=== PATIENT | female | born 1945 | race Caucasian/White ===

== ENCOUNTER 2018-02-04 03:48 | Observation (INO) | payer SELFPAY ==
[2018-02-04] VITALS (10 sets, daily range): BP systolic 126–188; BP diastolic 60–82; PULSE 63–76; RESP 16–23; TEMP 97.6–98.9; O2SAT 93–97
--- NOTE | 2018-02-04 04:24 | PD ---
HPI Chief Complaint: Dizziness Time Seen by Provider: 04:11 Travel History International Travel<30 days: No Contact w/Intl Traveler<30days: No Traveled to known affect area: No History of Present Illness HPI The patient is a 72 year old female who presents to the [facility] emergency department with a history of reported sensation of spinning that she first noticed around 2:45 AM when she got up to go to the bathroom. She reports that she noticed it while she was lying in bed prior to standing. She denies feeling lightheaded. She reports that she sees the room spinning. She reports having difficulty walking because of ataxia. The patient reports that she had nausea and vomiting 1 prior to arrival. On further questioning, the patient reports that she has had intermittent problems with ringing in her ears and a pressure sensation in her ears. She also reports having intermittent popping in her ears with muffled quality to her hearing. She denies having any headache. She reports that she does have problems with seasonal allergies which have been worse recently with some nasal congestion. She reports having a clear nasal discharge. She denies having any known recent fevers. On review of systems otherwise, the patient denies having any neck pain, chest pain, shortness of breath, abdominal pain, diarrhea, urinary symptoms, or other neurologic symptoms. [facility] Past Medical History Narrative Medical The patient's past medical history is significant for hypertension, arthritis, seasonal allergies. ?: Not Past Surgical History Surgical History: No Previous Surgery Social History Alcohol Use: No Tobacco Use: No Substance Use: No Allergies-Medications (Allergen,Severity, Reaction): Coded Allergies: No Known Allergies (Unverified , 02/04/18) Reported Meds & Prescriptions Reported Meds & Active Scripts Active Reported Losartan (Losartan Potassium) 25 Mg Tab 25 Mg PO BID Narrative Medication Meloxicam as needed, losartan, and allergy pill Review of Systems General / Constitutional: No: Fever Eyes: No: Diploplia, Visual changes HENT: Positive: Vertigo, Rhinorrhea, Congestion, Other (Ringing in her ears, muffled quality to sound), No: Headaches, Lightheadedness, Neck Stiffness, Neck Pain Cardiovascular: No: Chest Pain or Discomfort Respiratory: No: Shortness of Breath Gastrointestinal: Positive: Nausea, Vomiting, No: Abdominal Pain Genitourinary: No: Dysuria Musculoskeletal: No: Pain Skin: No Rash Neurologic: Positive: Weakness (Reported sensation of weakness in her leg), Dizziness, Coordination Problem, No: Focal Abnormalities, Headache, Change in Mentation, Slurred Speech, Sensory Disturbance Psychiatric: No: Depression Endocrine: No: Polydipsia Hematologic/Lymphatic: No: Easy Bruising Physical Exam Narrative General: The patient is a well-developed well-nourished female in no acute distress. Head and Neck exam: Head is normocephalic atraumatic. Eyes: EOMI, pupils are equal round and reactive to light. Subtle nystagmus with lateral gaze bilaterally. No double vision reported. No loss of visual key. Nose: Midline septum with pink mucous membranes Ears: Tympanic membranes are pearly bilaterally with good cone of light, no erythema or exudate. No cerumen impaction. Mouth: Dentition unremarkable. Moist mucus membranes. Posterior oropharynx is not erythematous. No tonsillar hypertrophy. Uvula midline. Airway patent. Neck: No palpable lymphadenopathy. No nuchal rigidity. No thyromegaly. Cardiovascular: Regular rate and rhythm without murmurs, gallops, or rubs. No pulse deficit to the extremities. Lungs: Clear to auscultation bilaterally. No wheezes, rhonchi, or rales. Abdomen: Soft, without tenderness to palpation in all 4 quadrants of the abdomen. No guarding, rebound, or rigidity. Normal bowel sounds are audible. No tenderness on palpation of McBurney's point. Extremities: No clubbing, cyanosis, or edema. 2+ pulses in all 4 extremities. Back: No spinous process tenderness to palpation. No costovertebral angle tenderness to palpation. Neurologic Exam: Cranial nerves 2-12 were intact on exam. Strength is 5/5 in all 4 extremities. No sensory deficits noted. The patient on examination has difficulty with finger to nose on the right side, difficulty with heel to pisano on the right side. The patient has a good finger to nose on the left side, good heel to pisano on the left side. The patient's gait was assessed. The patient with assistance was able to stand, however her gait is unsteady when attempting to walk. She is ataxic. Skin Exam: No rash noted. Intact skin that is warm and dry. Data Data Last Documented VS Vital Signs Date Time Temp Pulse Resp B/P (MAP) Pulse Ox O2 Delivery O2 Flow Rate FiO2 5/2/18 04:31 95 Room Air 02/04/18 04:31 75 16 02/04/18 03:51 98.1 Orders Orders Electrocardiogram (02/04/18 04:12) Complete Blood Count With Diff (02/04/18 04:12) Comprehensive Metabolic Panel (02/04/18 04:12) Creatine Kinase (Cpk) (02/04/18 04:12) Ckmb (Isoenzyme) Profile (02/04/18 04:12) Troponin I (02/04/18 04:12) Prothrombin Time / Inr (Pt) (02/04/18 04:12) Act Partial Throm Time (Ptt) (02/04/18 04:12) Lipase (02/04/18 04:12) Magnesium (Mg) (02/04/18 04:12) Ct Brain W/O Iv Contrast(Rout) (02/04/18 04:12) Iv Access Insert/Monitor (02/04/18 04:12) Ecg Monitoring (02/04/18 04:12) Oximetry (02/04/18 04:12) Sodium Chlor 0.9% 1000 Ml Inj (Ns 1000 M (02/04/18 04:30) Ondansetron Inj (Zofran Inj) (02/04/18 04:30) CKMB (02/04/18 04:38) CKMB% (02/04/18 04:38) Meclizine (Antivert) (02/04/18 05:15) Aspirin (Aspirin) (02/04/18 05:45) Losartan (Cozaar) (02/04/18 09:00) Admit Order (Ed Use Only) (02/04/18 05:55) Place In Observation (02/04/18 ) Vital Signs (Adult) Q4H (02/04/18 05:52) Activity Oob With Assistance (02/04/18 05:52) Diet Heart Healthy (02/04/18 Breakfast) Sodium Chloride 0.9% Flush (Ns Flush) (02/04/18 06:00) Sodium Chloride 0.9% Flush (Ns Flush) (02/04/18 09:00) Acetaminophen (Tylenol) (02/04/18 06:00) Ondansetron Inj (Zofran Inj) (02/04/18 06:00) Basic Metabolic Panel (Bmp) (02/05/18 06:00) Complete Blood Count With Diff (02/05/18 06:00) Pt Request For Service (02/04/18 05:52) Heparin Inj (Heparin Inj) (02/04/18 06:00) Naloxone Inj (Narcan Inj) (02/04/18 06:00) Docusate Sodium-Senna ([place]-Colace) (02/04/18 09:00) Magnesium Hydroxide Liq (Milk Of Magnesi (02/04/18 06:00) Sennosides (Senokot) (02/04/18 06:00) Bisacodyl Supp (Dulcolax Supp) (02/04/18 06:00) Lactulose Liq (Lactulose Liq) (02/04/18 06:00) Nih Stroke Scale - Nihss .Daily (02/04/18 05:52) Neuro Checks Q2HX12,Q4H (02/04/18 05:52) Case Management Consult (02/04/18 ) Nursing Bedside Swallow Assess .ONCE (02/04/18 05:52) Scd Bilateral/Knee High BRISA.QSHIFT (02/04/18 05:52) Hemoglobin (Hgb) A1c (02/04/18 05:52) Lipid Profile (02/05/18 06:00) Us Carotid Arteries Comp Bilat (02/04/18 ) Mra Brain W/O Contrast (Cow) (02/04/18 ) Mri Brain W/O Contrast (02/04/18 ) Echo 2d Comp With Doppler (02/04/18 ) Consult Neurology (02/04/18 ) Sodium Chlor 0.9% 1000 Ml Inj (Ns 1000 M (02/04/18 05:52) Bedside Glucose BRISA.CSUGAR (02/04/18 05:52) Insulin Aspart Supplemtl Scale (Novolog (02/04/18 08:00) Shuttleless Loom Weaver / Telemetry BRISA.Q8H (02/04/18 05:52) Consult Stroke Navigator (02/04/18 ) Labs Laboratory Tests Test 02/04/18 04:38 White Blood Count 7.5 TH/MM3 Red Blood Count 4.51 MIL/MM3 Hemoglobin 13.4 GM/DL Hematocrit 38.8 % Mean Corpuscular Volume 85.9 FL Mean Corpuscular Hemoglobin 29.7 PG Mean Corpuscular Hemoglobin Concent 34.5 % Red Cell Distribution Width 12.9 % Platelet Count 281 TH/MM3 Mean Platelet Volume 7.5 FL Neutrophils (%) (Auto) 66.3 % Lymphocytes (%) (Auto) 23.9 % Monocytes (%) (Auto) 5.8 % Eosinophils (%) (Auto) 3.5 % Basophils (%) (Auto) 0.5 % Neutrophils # (Auto) 5.0 TH/MM3 Lymphocytes # (Auto) 1.8 TH/MM3 Monocytes # (Auto) 0.4 TH/MM3 Eosinophils # (Auto) 0.3 TH/MM3 Basophils # (Auto) 0.0 TH/MM3 CBC Comment DIFF FINAL Differential Comment Prothrombin Time 10.7 SEC Prothromb Time International Ratio 1.1 RATIO Activated Partial Thromboplast Time 24.0 SEC Blood Urea Nitrogen 22 MG/DL Creatinine 0.67 MG/DL Random Glucose 102 MG/DL Total Protein 7.3 GM/DL Albumin 3.5 GM/DL Calcium Level 9.3 MG/DL Magnesium Level 1.8 MG/DL Alkaline Phosphatase 105 U/L Aspartate Amino Transf (AST/SGOT) 17 U/L Alanine Aminotransferase (ALT/SGPT) 41 U/L Total Bilirubin 0.6 MG/DL Sodium Level 139 MEQ/L Potassium Level 3.8 MEQ/L Chloride Level 105 MEQ/L Carbon Dioxide Level 28.1 MEQ/L Anion Gap 6 MEQ/L Estimat Glomerular Filtration Rate 87 ML/MIN Total Creatine Kinase 122 U/L Creatine Kinase MB 1.8 NG/ML Troponin I LESS THAN 0.02 NG/ML Lipase 187 U/L [facility] Medical Decision Making Medical Screen Exam Complete: Yes Emergency Medical Condition: Yes Medical Record Reviewed: Yes Differential Diagnosis TIA, versus CVA, versus cerebellar mass, versus benign positional vertigo, versus Mnire's disease, versus labyrinthitis Narrative Course During the course of the patient's emergency department visit, the patient's history, examination, and differential diagnosis were reviewed with the patient. The patient was placed on a desk monitor with oximetry and frequent blood pressure monitoring. The patient had IV access obtained and blood work sent for analysis. The patient had an EKG done on arrival that shows a sinus rhythm heart rate of 76, QRS duration 101 ms, QTC [address] segment elevation is noted, T waves are inverted in V1. The patient was initially provided normal saline at 70 mL/h. The patient was given Zofran 4 mg IV for nausea, Antivert 25 mg p.o. 1. The patient's laboratory studies were reviewed and remarkable for 02/04/18 04:38 Total Protein 7.3, Albumin 3.5, Calcium Level 9.3, Magnesium Level 1.8, Alkaline Phosphatase 105, Aspartate Amino Transf (AST/SGOT) 17, Alanine Aminotransferase (ALT/SGPT) 41, Total Bilirubin 0.6. Cardiac enzymes are within normal limits, lipase 187. PT 10.7, PTT 24 Radiology studies were reviewed and remarkable for Last Impressions Head CT 02/04/18 0412 Signed Impressions: Service Date/Time: Sunday, February 04, 2018 04:51 - CONCLUSION: 1. Chronic changes in the deep white matter tracts and external capsules. 2. Nothing acute. Rodney Hall MD Due to a concern that the patient's symptoms are related to a TIA, the patient was given aspirin 325 mg p.o. 1. The patient will be admitted for continued evaluation and treatment. The patient's results were discussed with the patient, including the plan of care. I explained that further testing and/ or monitoring is indicated based on the patient's history, examination, and/ or laboratory findings. Therefore, I recommended admission for additional evaluation. The patient expressed understanding and was agreeable with this plan. The patient was admitted to the hospital in stable condition and sent to a bed under the care of the [facility] service. Physician Communication Physician Communication The patient's case including history, pertinent physical examination findings, and laboratory studies were discussed with Dr. Pritchard. It was agreed that the patient would be admitted to the [facility] service. Diagnosis Primary Impression: Vertigo Admitting Information Admitting Physician Requests: Observation Martha Yanez MD February 04, 2018 04:24
[2018-02-04] MEDS ORDERED: LOSA25TA PO (04:30)
[2018-02-04] MEDS ORDERED: ONDANSETRON HCL 4 MG/2 ML VIAL IV PUSH ONE (04:30)
[2018-02-04] MEDS: SODIUM CHLOR 0.9% 1000 ML INJ 1,000 ML IV SCH ×3 (04:36→15:44)
[2018-02-04 04:49] LABS: BASOPHIL % 0.5 % (0.0-2.0); EOSINOPHIL # 0.3 TH/MM3 (0-0.4); EOSINOPHIL % 3.5 % (0.0-4.0); HEMATOCRIT 38.8 % (35.0-46.0); HEMOGLOBIN 13.4 GM/DL (11.6-15.3); LYMPH % 23.9 % (9.0-44.0); LYMPHOCYTE # 1.8 TH/MM3 (1.0-4.8); MEAN CELL VOLUME 85.9 FL (80.0-100.0); MEAN CORPUSCULAR HEMOGLOBIN 29.7 PG (27.0-34.0); MEAN CORPUSCULAR HGB CONC 34.5 % (32.0-36.0); MEAN PLATELET VOLUME 7.5 FL (7.0-11.0); MONO % 5.8 % (0.0-8.0); MONOCYTE # 0.4 TH/MM3 (0-0.9); NEUT % 66.3 % (16.0-70.0); PLATELET COUNT 281 TH/MM3 (150-450); RED BLOOD COUNT 4.51 MIL/MM3 (4.00-5.30); RED CELL DISTRIBUTION WIDTH 12.9 % (11.6-17.2); WHITE BLOOD COUNT 7.5 TH/MM3 (4.0-11.0)
[2018-02-04 05:00] LABS: INTERNATIONAL NORMALIZED RATIO 1.1 RATIO; PROTHROMBIN TIME - PATIENT 10.7 SEC (9.8-11.6)
[2018-02-04 05:06] LABS: ALBUMIN 3.5 GM/DL (3.4-5.0); AST (GOT) 17 U/L (15-37); BICARBONATE 28.1 MEQ/L (21.0-32.0); BLOOD UREA NITROGEN 22 MG/DL (7-18); CALCIUM 9.3 MG/DL (8.5-10.1); CHLORIDE 105 MEQ/L (98-107); CREATININE 0.67 MG/DL (0.50-1.00); GLOMERULAR FILTRATION RATE 87 ML/MIN (>89); GLUCOSE,RANDOM 102 MG/DL (74-106); MAGNESIUM 1.8 MG/DL (1.5-2.5); SODIUM (NA) 139 MEQ/L (136-145)
[2018-02-04 05:07] LABS: ALT (GPT) 41 U/L (10-53)
[2018-02-04 05:11] LABS: ALKALINE PHOSPHATASE 105 U/L (45-117); TOTAL BILIRUBIN ADULT 0.6 MG/DL (0.2-1.0); TOTAL PROTEIN 7.3 GM/DL (6.4-8.2); TROPONIN I LESS THAN 0.02 NG/ML (0.02-0.05)
[2018-02-04] MEDS ORDERED: MECLIZINE HCL 25 MG TAB PO ONE (05:15)
--- NOTE | 2018-02-04 05:39 | RADRPT ---
EXAM DATE/TIME: 02/04/2018 04:51 [facility] COMPARISON: No previous studies available for comparison. INDICATIONS : Dizziness. RADIATION DOSE: 56.35 CTDIvol (mGy) MEDICAL HISTORY : Hypertension. SURGICAL HISTORY : None. ENCOUNTER: Initial ACUITY: 1 day PAIN SCALE: 0/10 LOCATION: cranial TECHNIQUE: Multiple contiguous axial images were obtained of the head. Using automated exposure control and adj ustment of the mA and/or kV according to patient size, radiation dose was kept as low as reasonably a chievable to obtain optimal diagnostic quality images. DICOM format image data is available electro nically for review and comparison. FINDINGS: CEREBRUM: The ventricles are normal for age. No evidence of midline shift, mass lesion, hemorrhage or acute in farction. 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 No extra-ax ial fluid collections are seen. POSTERIOR FOSSA: The cerebellum and brainstem are intact. The 4th ventricle is midline. The cerebellopontine angle i s unremarkable. EXTRACRANIAL: The visualized portion of the orbits is intact. SKULL: The calvaria is intact. No evidence of skull fracture. CONCLUSION: 1. Chronic changes in the deep white matter tracts and external capsules. 2. Nothing acute. Rodney Hall MD on February 04, 2018 at 5:36 Board Certified Radiologist. This report was verified electronically.
[2018-02-04] MEDS ORDERED: ASPIRIN 325 MG TAB PO ONE (05:45)
[2018-02-04] MEDS ORDERED: NALOXONE HCL 0.4 MG/ML AMP IV PUSH PRN (06:00)
[2018-02-04] MEDS ORDERED: SODIUM CHLORIDE 0.9% FLUSH 10 ML FLUSH IV FLUSH PRN (06:00)
[2018-02-04] MEDS ORDERED: SENNOSIDES 8.6 MG TAB PO PRN (06:00)
[2018-02-04] MEDS ORDERED: ACETAMINOPHEN 325 MG TAB PO PRN (06:00)
[2018-02-04] MEDS ORDERED: LACTULOSE SYRUP 20 GM/30 ML CUP PO PRN (06:00)
[2018-02-04] MEDS ORDERED: MAGNESIUM HYDROXIDE SUSP 30 ML CUP PO PRN (06:00)
[2018-02-04] MEDS ORDERED: ONDANSETRON HCL 4 MG/2 ML VIAL IVP PRN (06:00)
[2018-02-04] MEDS ORDERED: BISACODYL 10 MG SUPP RECTAL PRN (06:00)
[2018-02-04] MEDS: HEPARIN SODIUM - SQ 10,000 UNITS/ML VIAL SQ SCH ×2 (06:30→18:18)
--- NOTE | 2018-02-04 08:11 | HHI.HP ---
HPI Service [facility] Primary Care Physician Unknown Admission Diagnosis Vertigo, r/o TIA Diagnoses: Chief Complaint: dizziness Travel History International Travel<30 Days: No Contact w/Intl Traveler <30 Da: No Traveled to Known Affected Are: No History of Present Illness 72-year-old female with history of hypertension, diet-controlled hyperlipidemia , presents with acute onset of dizziness. The patient is Amharic speaking only, translation service offered, however her son is at bedside who assisted in translation per the request of the patient. The patient reports around 2 AM this morning she is lying in bed when she felt dizzy, attempted to ambulate to the bathroom, and became acutely severely dizzy, described as the room spinning. Denies any lightheadedness or near syncope. She reports difficulty with ambulation and feels imbalanced. She has not had nausea and one episode of vomiting which prompted her to come to the ER. Patient denies any recent fevers/chills or cough, but has had recent flare of her seasonal allergies with some rhinitis. She reports one prior episode of dizziness that resolved on its own. She went to her doctor's office after that episode and was told it was likely an episode of vertigo. She denies any prior history of stroke. She denies any headache, visual changes, unilateral numbness/weakness, chest pain, palpitations, shortness of breath, or abdominal pains. She has no other medical complaints at this time. She is prescribed losartan 25 mg bid for her blood pressure, but usually only takes this once a day. She does check her blood pressures regularly at grocery stores, usually systolic in the 140s. Review of Systems Except as stated in HPI: all other systems reviewed are Neg Past Family Social History Past Medical History Hypertension Diet-controlled hyperlipidemia Arthritis Seasonal allergies Past Surgical History Denies any prior surgeries Reported Medications Losartan (Losartan Potassium) 25 Mg Tab 25 Mg PO BID Allergies: Coded Allergies: No Known Allergies (Unverified , 02/04/18) Active Ordered Medications Current Medications Medications (Trade) Dose Ordered Sig/Nirav Route Start Time Stop Time Status Last Admin Sodium Chloride 1,000 ml @ 70 mls/hr [id number] IV 02/04/18 04:30 02/04/18 04:36 (Cozaar) 25 mg BID PO 02/04/18 09:00 02/04/18 09:09 (NS Flush) 2 ml UNSCH PRN IV FLUSH 02/04/18 06:00 (NS Flush) 2 ml BID IV FLUSH 02/04/18 09:00 02/04/18 09:09 (Tylenol) 650 mg Q4H PRN PO 02/04/18 06:00 (Zofran Inj) 4 mg Q6H PRN IVP 02/04/18 06:00 (Heparin Inj) 5,000 units Q12H SQ 02/04/18 06:00 02/04/18 06:30 (Narcan Inj) 0.4 mg UNSCH PRN IV PUSH 02/04/18 06:00 ([place]ia-Colace) 1 tab BID PO 02/04/18 09:00 02/04/18 09:09 (Milk Of Magnesia Liq) 30 ml Q12H PRN PO 02/04/18 06:00 (Senokot) 17.2 mg Q12H PRN PO 02/04/18 06:00 (Dulcolax Supp) 10 mg DAILY PRN RECTAL 02/04/18 06:00 (Lactulose Liq) 30 ml DAILY PRN PO 02/04/18 06:00 Sodium Chloride 1,000 ml @ 70 mls/hr [id number] IV 02/04/18 05:52 02/04/18 06:33 (NovoLOG SUPPLEMENTAL SCALE) 1 ACHS SQ 02/04/18 08:00 Family History Father with heart disease Mother with no significant medical history that she is aware of Social History Denies any tobacco, alcohol, or illicit drug use. Physical Exam Vital Signs Vital Signs Date Time Temp Pulse Resp B/P (MAP) Pulse Ox O2 Delivery O2 Flow Rate FiO2 02/04/18 07:42 98.9 64 18 142/69 (93) 95 02/04/18 06:39 02/04/18 06:18 63 16 160/70 (100) 93 Room Air 02/04/18 04:31 95 Room Air 02/04/18 04:31 75 16 183/80 (114) 95 Room Air 02/04/18 03:51 98.1 76 23 188/82 (117) 97 Physical Exam GENERAL: Well-nourished, well-developed pleasant female patient in NAD. SKIN: Warm and dry. No rash. HEAD: Normocephalic. Atraumatic. EYES: Pupils equal and round. No scleral icterus. No injection or drainage. EOMI. No noticeable nystagmus. ENT: No nasal bleeding or discharge. Mucous membranes pink and moist. NECK: Supple. Trachea midline. CARDIOVASCULAR: Regular rate and rhythm. No murmur appreciated. RESPIRATORY: No accessory muscle use. Clear to auscultation. Breath sounds equal bilaterally. GASTROINTESTINAL: Abdomen soft, non-tender, nondistended. Normoactive bowel sounds x4. MUSCULOSKELETAL: No obvious deformities. Extremities without clubbing, cyanosis , or edema. NEUROLOGICAL: Awake and alert. No obvious cranial nerve deficits. Motor grossly within normal limits. 5/5 muscle strength in bilateral upper and lower extremities. Normal speech. PSYCHIATRIC: Appropriate mood and affect; insight and judgment normal. Laboratory Laboratory Tests Test 02/04/18 04:38 White Blood Count 7.5 Red Blood Count 4.51 Hemoglobin 13.4 Hematocrit 38.8 Mean Corpuscular Volume 85.9 Mean Corpuscular Hemoglobin 29.7 Mean Corpuscular Hemoglobin Concent 34.5 Red Cell Distribution Width 12.9 Platelet Count 281 Mean Platelet Volume 7.5 Neutrophils (%) (Auto) 66.3 Lymphocytes (%) (Auto) 23.9 Monocytes (%) (Auto) 5.8 Eosinophils (%) (Auto) 3.5 Basophils (%) (Auto) 0.5 Neutrophils # (Auto) 5.0 Lymphocytes # (Auto) 1.8 Monocytes # (Auto) 0.4 Eosinophils # (Auto) 0.3 Basophils # (Auto) 0.0 CBC Comment DIFF FINAL Differential Comment Prothrombin Time 10.7 Prothromb Time International Ratio 1.1 Activated Partial Thromboplast Time 24.0 Blood Urea Nitrogen 22 Creatinine 0.67 Random Glucose 102 Total Protein 7.3 Albumin 3.5 Calcium Level 9.3 Magnesium Level 1.8 Alkaline Phosphatase 105 Aspartate Amino Transf (AST/SGOT) 17 Alanine Aminotransferase (ALT/SGPT) 41 Total Bilirubin 0.6 Sodium Level 139 Potassium Level 3.8 Chloride Level 105 Carbon Dioxide Level 28.1 Anion Gap 6 Estimat Glomerular Filtration Rate 87 Total Creatine Kinase 122 Creatine Kinase MB 1.8 Troponin I LESS THAN 0.02 Lipase 187 Result Diagram: 02/04/188 02/04/18437 Imaging Last Impressions Head CT 02/04/18411 Signed Impressions: Service Date/Time: Sunday, February 04, 2018 04:51 - CONCLUSION: 1. Chronic changes in the deep white matter tracts and external capsules. 2. Nothing acute. MD Jonna Brooks VTE Risk Assessment Capyefri VTE Risk Assessment: Mod/High Risk (score >= 2) Caprini Risk Assessment Model Point Value = 1 Point Value = 2 Point Value = 3 Point Value = 5 Age 41-60 Minor surgery BMI > 25 kg/m2 Swollen legs Varicose veins or History of unexplained or recurrent spontaneous Oral contraceptives or hormone replacement Sepsis (< 1 month) Serious lung disease, including pneumonia (< 1 month) Abnormal pulmonary function Acute myocardial infarction Congestive heart failure (< 1 month) History of inflammatory bowel disease Medical patient at bed rest Age 61-74 Arthroscopic surgery Major open surgery (> 45 min) Laparoscopic surgery (> 45 min) Malignancy Confined to bed (> 72 hours) Immobilizing plaster cast Central venous access Age >= 75 History of VTE Family history of VTE Factor V Leiden Prothrombin [id number] Lupus anticoagulant Anticardiolipin antibodies Elevated serum homocysteine Heparin-induced thrombocytopenia Other congenital or acquired thrombophilia Stroke (< 1 month) Elective arthroplasty Hip, pelvis, or leg fracture Acute spinal cord injury (< 1 month) Prophylaxis Regimen Total Risk Factor Score Risk Level Prophylaxis Regimen 0-1 Low Early ambulation 2 Moderate Order ONE of the following: *Sequential Compression Device (SCD) *Heparin 5000 units SQ BID 3-4 Higher Order ONE of the following medications: *Heparin 5000 units SQ TID *Enoxaparin/Lovenox 40 mg SQ daily (WT < 150 kg, CrCl > 30 mL/min) *Enoxaparin/Lovenox 30 mg SQ daily (WT < 150 kg, CrCl > 10-29 mL/min) *Enoxaparin/Lovenox 30 mg SQ BID (WT < 150 kg, CrCl > 30 mL/min) AND/OR *Sequential Compression Device (SCD) 5 or more Highest Order ONE of the following medications: *Heparin 5000 units SQ TID (Preferred with Epidurals) *Enoxaparin/Lovenox 40 mg SQ daily (WT < 150 kg, CrCl > 30 mL/min) *Enoxaparin/Lovenox 30 mg SQ daily (WT < 150 kg, CrCl > 10-29 mL/min) *Enoxaparin/Lovenox 30 mg SQ BID (WT < 150 kg, CrCl > 30 mL/min) AND *Sequential Compression Device (SCD) Assessment and Plan Problem List: (1) Vertigo ICD Code: R42 - Dizziness and giddiness Status: Acute Assessment and Plan 72-year-old female with history of hypertension, diet-controlled hyperlipidemia , presents with acute onset of dizziness. The patient is Amharic speaking only, son is at bedside who assisted in translation per the request of the patient. Benign paroxysmal positional vertigo: Rule out TIA/CVA, however symptoms suggestive of vertigo, positive nystagmus upon arrival. S/p meclizine and zofran 1 with improvement of symptoms. -Head CT reviewed, no acute findings -Check brain MRI/MRA to rule out CVA. -Check carotid ultrasound -Continue meclizine 25 mg q6h prn dizziness -Consult PT -Monitor for improvement Accelerated hypertension: BP 188/82 upon arrival. Patient was prescribed losartan 25 mg bid at home, however usually only takes this once a day. -Continue patient's losartan 25 mg bid -Monitor BP, adjust antihypertensives as needed DVT prophylaxis: heparin sq Discussed Condition With Patient, Patient's Son, Jennifer Stewart PA-C February 04, 2018 8:11 am
[2018-02-04] MEDS: INSULIN ASPART SUPPLEMENTAL SCALE SQ SCH ×4 (08:26→21:00)
--- NOTE | 2018-02-04 08:49 | EKG ---
Date Performed: 02/04/2018 Time Performed: 04:24:09 PTAGE: 72 years EKG: Sinus rhythm BORDERLINE LEFT AXIS DEVIATION BORDERLINE ECG NO PREVIOUS TRACING DOCTOR: Mark Yanez Interpretating Date/Time 02/04/2018 08:46:15
[2018-02-04] MEDS: DOCUSATE SODIUM 50 MG/SENNA 8.6 MG TAB PO SCH ×2 (09:09→21:01)
[2018-02-04] MEDS: LOSARTAN 25 MG TAB PO SCH ×2 (09:09→21:01)
[2018-02-04] MEDS: SODIUM CHLORIDE 0.9% FLUSH 10 ML FLUSH IV FLUSH SCH ×2 (09:09→21:00)
--- NOTE | 2018-02-04 11:36 | RADRPT ---
EXAM DATE/TIME: 02/04/2018 10:53 [facility] COMPARISON: No previous studies available for comparison. INDICATIONS : Dizziness. MEDICAL HISTORY : Hypercholesterolemia. Hypertension. SURGICAL HISTORY : None. ENCOUNTER: Initial ACUITY: 1 day PAIN SCORE: 0/10 LOCATION: Bilateral neck PEAK SYSTOLIC VELOCITIES (cm/sec): ICA/CCA RATIO: Right: 1.3 Left: 1.3 ICA: Right: 108 Left: 121 CCA: Right: 80 Left: 91 ECA: Right: 282 Left: 107 VERTEBRAL: Right: 41 antegrade Left: 41 antegrade Elevated flow velocities and ICA/CCA ratios have been found to correlate with increased degrees of vessel stenosis, calculated as percentage of diameter relative to a normal segment of distal ICA/CCA FINDINGS: RIGHT CAROTID: There is mild atherosclerotic plaquing at the bifurcation.. The waveforms are within normal limits. LEFT CAROTID: There is mild atherosclerotic plaquing at the bifurcation.. The waveforms are within normal limits. VERTEBRAL ARTERIES: Antegrade flow is seen in both vertebral arteries. MISCELLANEOUS: None. CONCLUSION: 1. Mild atherosclerotic plaquing at the carotid bifurcations. 2. No hemodynamically significant carotid artery stenosis identified. 3. Incidental note made of bilateral thyroid nodules. There are only partially visualized. The larges t is on the left measuring 3.7 x 3.5 cm. Mateus Luciano MD on February 04, 2018 at 11:33 Board Certified Radiologist. This report was verified electronically.
--- NOTE | 2018-02-04 13:12 | RADRPT ---
EXAM DATE/TIME: 02/04/2018 12:13 [facility] COMPARISON: CT BRAIN W/O CONTRAST, February 04, 2018, 4:51. INDICATIONS : Dizziness. MEDICAL HISTORY : Hypertension. SURGICAL HISTORY : None. ENCOUNTER: Subsequent ACUITY: 2 day PAIN SCORE: 0/10 LOCATION: cranial TECHNIQUE: Multiplanar, multisequence MRI of the brain was performed without contrast. FINDINGS: CEREBRUM: The ventricles are normal for age. There is bilateral cortical atrophy. No evidence of midline shift , mass lesion, hemorrhage or acute infarction. No extraaxial fluid collections are seen. The pituit nataliia gland and suprasellar cistern are normal in configuration. WHITE MATTER: There is moderate chronic white matter changes throughout the white matter tracts bilaterally. POSTERIOR FOSSA: The cerebellum and brainstem are intact. The 4th ventricle is midline. The cerebellopontine angle is unremarkable. The cerebellar tonsils are normal in position. DIFFUSION IMAGING: No focal areas of restricted diffusion are seen. No evidence of acute infarction. EXTRACRANIAL: The visualized portions of the orbits and paranasal sinuses are unremarkable. CONCLUSION: 1. Bilateral cortical atrophy and diffuse chronic white matter changes. 2. Otherwise, unremarkable exam for patient's age. Arie Avendano MD on February 04, 2018 at 13:09 Board Certified Radiologist. This report was verified electronically.
--- NOTE | 2018-02-04 13:13 | RADRPT ---
EXAM DATE/TIME: 02/04/2018 12:13 [facility] COMPARISON: No previous studies available for comparison. INDICATIONS : Dizziness. MEDICAL HISTORY : Hypertension. SURGICAL HISTORY : None. ENCOUNTER: Subsequent ACUITY: 2 day PAIN SCORE: 0/10 LOCATION: cranial Please note a normal MRA of the brain does not entirely exclude the possibility of a small aneurysm, nor the possibility of distal intracranial vessel disease. TECHNIQUE: 3D time of flight MRA was performed. Source images, multiplanar STS MIP, and 3D volume MIP reconstru ctions were reviewed. FINDINGS: There is excellent visualization of the major intracranial arteries out to the second-order branch ve ssels. There is no evidence for aneurysm, vessel truncation or stenosis, and no evidence for vascula r malformation. CONCLUSION: No acute disease. Arie Avendano MD on February 04, 2018 at 13:11 Board Certified Radiologist. This report was verified electronically.
[2018-02-04 15:46] LABS: HEMOGLOBIN A1C 5.6 % (4.3-6.0)
[2018-02-04] MEDS ORDERED: MECL-62 PO (15:55)
--- NOTE | 2018-02-04 15:55 | HHI.DCPOC ---
Discharge Care Plan Diagnosis: (1) Vertigo (2) Hypertension Goals to Promote Your Health * To prevent worsening of your condition and complications * To maintain your health at the optimal level Directions to Meet Your Goals Take your medications as prescribed Follow your dietary instruction Follow activity as directed Keep your appointments as scheduled Take your immunizations and boosters as scheduled If your symptoms worsen call your PCP, if no PCP go to Urgent Care Center or Emergency Room Smoking is Dangerous to Your Health. Avoid second hand smoke Call the 24-hour hour crisis hotline for domestic abuse at Jennifer Rogers PA-C February 04, 2018 3:55 pm
[2018-02-04 16:40] LABS: FREE T4 0.99 NG/DL (0.76-1.46)
--- NOTE | 2018-02-04 17:43 | MB ---
cc: Tatyana Reese MD, Dalia MD DATE: 02/04/2018 REASON FOR CONSULTATION: Vertigo. HISTORY OF PRESENT ILLNESS: This is a 72-year-old woman with a history of hyperlipidemia, hypertension. She comes in with sudden onset of vertigo with some nausea and vomiting. Per her son, who translates, it was worse to the right. She has had this in the past. She is feeling better. She actually was able to ambulate now with a physical therapist. Fortunately, her scans have come back unremarkable. PAST MEDICAL HISTORY: As stated. ALLERGIES: None. CURRENT MEDICINES: Losartan. SOCIAL HISTORY: No tobacco, alcohol or drugs. PHYSICAL EXAMINATION: VITAL SIGNS: Temperature is 98.7, pulse 67, respiratory rate 18, blood pressure 126/60. NECK: Supple. There are no bruits. HEART: Regular. NEUROLOGIC EXAM: She is awake, alert. Her speech is normal in Congolese. Pupils reactive. Visual key full. No nystagmus. Tongue midline. Hearing normal. Motor blount - no drift or leg lag. Obncoy-gvzo-[id number] - There is no past pointing. DTRs are 1+. Toes are downgoing. Sensory normal. Her gait is withheld at this time, IMAGING STUDIES: MRI brain shows bilateral atrophy and white matter changes but no acute findings otherwise. [place] of [place] did not show any intracranial disease. Carotid ultrasound - there is mild plaquing. There are also some thyroid nodules. IMPRESSION: Most likely consistent with benign paroxysmal positional vertigo. PLAN: Recommend some outpatient vestibular rehabilitation for Mariza maneuver exercises. She can have some Meclizine p.r.n. Continue her home medicines for her blood pressure, adequate blood pressure control. She has some thyroid nodules. She will need a followup with endocrinology for that. From my perspective if cleared by physical therapy, she can go home with outpatient physical therapy and Meclizine p.r.n. MD HELENA Knowles/ , 05:30 PM , 05:41 PM
[2018-02-05] VITALS (7 sets, daily range): BP systolic 128–166; BP diastolic 60–76; PULSE 65–75; RESP 16; TEMP 97.8–98.2; O2SAT 93–98
[2018-02-05] MEDS: HEPARIN SODIUM - SQ 10,000 UNITS/ML VIAL SQ SCH (06:34)
[2018-02-05] MEDS: SODIUM CHLOR 0.9% 1000 ML INJ 1,000 ML IV SCH ×3 (06:35→10:28)
[2018-02-05 07:27] LABS: BASOPHIL % 0.5 % (0.0-2.0); EOSINOPHIL # 0.3 TH/MM3 (0-0.4); HEMATOCRIT 38.5 % (35.0-46.0); HEMOGLOBIN 13.1 GM/DL (11.6-15.3); LYMPH % 28.5 % (9.0-44.0); LYMPHOCYTE # 1.9 TH/MM3 (1.0-4.8); MEAN CELL VOLUME 86.5 FL (80.0-100.0); MEAN CORPUSCULAR HEMOGLOBIN 29.3 PG (27.0-34.0); MEAN CORPUSCULAR HGB CONC 33.9 % (32.0-36.0); MEAN PLATELET VOLUME 7.9 FL (7.0-11.0); MONOCYTE # 0.5 TH/MM3 (0-0.9); PLATELET COUNT 287 TH/MM3 (150-450); RED BLOOD COUNT 4.45 MIL/MM3 (4.00-5.30); RED CELL DISTRIBUTION WIDTH 12.9 % (11.6-17.2); WHITE BLOOD COUNT 6.7 TH/MM3 (4.0-11.0)
[2018-02-05 08:01] LABS: CREATININE 0.62 MG/DL (0.50-1.00)
[2018-02-05 08:02] LABS: CHOLESTEROL/ HDL RATIO 4.89 RATIO; HDL CHOLESTEROL 41.7 MG/DL (40.0-60.0)
[2018-02-05] MEDS: INSULIN ASPART SUPPLEMENTAL SCALE SQ SCH ×3 (08:17→17:01)
[2018-02-05] MEDS: DOCUSATE SODIUM 50 MG/SENNA 8.6 MG TAB PO SCH (08:41)
[2018-02-05] MEDS: SODIUM CHLORIDE 0.9% FLUSH 10 ML FLUSH IV FLUSH SCH (08:41)
[2018-02-05] MEDS: LOSARTAN 25 MG TAB PO SCH (08:41)
--- NOTE | 2018-02-05 09:56 | HHI.PR ---
Subjective Remarks Follow-up for vertigo, thyroid nodules. The patient reports feeling much better today. She denies any recurrent dizziness. She has been able to ambulate to the restroom without difficulty. Denies any headache, lightheadedness, chest pain, palpitations, shortness of breath, or abdominal complaints. Discussed her elevated LDL, the son reports she has tried many cholesterol medications in the past but could not tolerate this because of muscle aches. She does take fish oil at home. The patient's son would like to avoid any cholesterol medications at this time and plans to follow-up with primary care physician. Objective Vitals Vital Signs Date Time Temp Pulse Resp B/P (MAP) Pulse Ox O2 Delivery O2 Flow Rate FiO2 02/05/18 08:19 98.0 75 16 166/72 (103) 96 02/05/18 07:49 65 02/05/18 04:37 98.0 71 16 137/64 (88) 93 02/05/18 00:27 98.2 75 16 128/60 (82) 95 02/04/18 21:19 98.3 76 16 131/67 (88) 95 02/04/18 16:49 98.7 67 18 126/60 (82) 97 02/04/18 15:40 72 02/04/18 14:03 97.6 65 18 131/61 (84) 93 02/04/18 11:41 67 I/O 02/04/18 02/04/18 02/04/18 02/05/18 02/05/18 02/05/18 06:59 14:59 22:59 06:59 14:59 22:59 Intake Total 1000 ml Balance 1000 ml Intake IV Total 1000 ml # Voids 2 1 Result Diagram: 02/05/18 0600 02/05/18 0600 Imaging Last Impressions Head CT 02/04/18 0412 Signed Impressions: Service Date/Time: Sunday, February 04, 2018 04:51 - CONCLUSION: 1. Chronic changes in the deep white matter tracts and external capsules. 2. Nothing acute. Rodney Hall MD Head Magnetic Resonance Angiography 02/04/18 0000 Signed Impressions: Service Date/Time: Sunday, February 04, 2018 12:13 - CONCLUSION: No acute disease. Arie Avendano MD Carotid Artery Ultrasound 02/04/18 0000 Signed Impressions: Service Date/Time: Sunday, February 04, 2018 10:53 - CONCLUSION: 1. Mild atherosclerotic plaquing at the carotid bifurcations. 2. No hemodynamically significant carotid artery stenosis identified. 3. Incidental note made of bilateral thyroid nodules. There are only partially visualized. The largest is on the left measuring 3.7 x 3.5 cm. Mateus Luciano MD Brain MRI 02/04/18 0000 Signed Impressions: Service Date/Time: Sunday, February 04, 2018 12:13 - CONCLUSION: 1. Bilateral cortical atrophy and diffuse chronic white matter changes. 2. Otherwise, unremarkable exam for patient's age. Arie Avendano MD Objective Remarks GENERAL: Well-nourished, well-developed pleasant female patient in NAD. SKIN: Warm and dry. No rash. HEENT: Normocephalic. Atraumatic.Pupils equal and round. EOMI. No noticeable nystagmus. Mucous membranes pink and moist. CARDIOVASCULAR: Regular rate and rhythm. No murmur appreciated. RESPIRATORY: No accessory muscle use. Clear to auscultation. Breath sounds equal bilaterally. GASTROINTESTINAL: Abdomen soft, non-tender, nondistended. Normoactive bowel sounds x4. MUSCULOSKELETAL: No obvious deformities. Extremities without clubbing, cyanosis , or edema. NEUROLOGICAL: Awake and alert. No obvious cranial nerve deficits. Motor grossly within normal limits. Normal speech. PSYCHIATRIC: Appropriate mood and affect; insight and judgment normal. Medications and IVs Current Medications Medications (Trade) Dose Ordered Sig/Nirav Route Start Time Stop Time Status Last Admin (Cozaar) 25 mg BID PO 02/04/18 09:00 02/05/18 08:41 (NS Flush) 2 ml UNSCH PRN IV FLUSH 02/04/18 06:00 (NS Flush) 2 ml BID IV FLUSH 02/04/18 09:00 02/05/18 08:41 (Tylenol) 650 mg Q4H PRN PO 02/04/18 06:00 (Zofran Inj) 4 mg Q6H PRN IVP 02/04/18 06:00 (Heparin Inj) 5,000 units Q12H SQ 02/04/18 06:00 02/05/18 06:34 (Narcan Inj) 0.4 mg UNSCH PRN IV PUSH 02/04/18 06:00 ([place]-Colace) 1 tab BID PO 02/04/18 09:00 02/04/18 21:01 (Milk Of Magnesia Liq) 30 ml Q12H PRN PO 02/04/18 06:00 (Senokot) 17.2 mg Q12H PRN PO 02/04/18 06:00 (Dulcolax Supp) 10 mg DAILY PRN RECTAL 02/04/18 06:00 (Lactulose Liq) 30 ml DAILY PRN PO 02/04/18 06:00 (NovoLOG SUPPLEMENTAL SCALE) 1 ACHS SQ 02/04/18 08:00 A/P Problem List: (1) Vertigo ICD Code: R42 - Dizziness and giddiness Status: Acute Assessment and Plan 72-year-old female with history of hypertension, diet-controlled hyperlipidemia , presents with acute onset of dizziness. The patient is Prydein[place] speaking only, son is at bedside who assisted in translation per the request of the patient. Benign paroxysmal positional vertigo: Rule out TIA/CVA, however symptoms suggestive of vertigo, positive nystagmus upon arrival. S/p meclizine and zofran 1 with improvement of symptoms. -Head CT reviewed, no acute findings -Check brain MRI/MRA to rule out CVA. -Carotid ultrasound with no stenosis, but did have incidental finding of large thyroid nodules -Continue meclizine 25 mg q6h prn dizziness -Neurology consulted, agrees likely vertigo, recommends vestibular therapy and meclizine prn -Consult PT, ok with outpatient vestibular therapy -Symptoms resolved Accelerated hypertension: BP 188/82 upon arrival. Patient was prescribed losartan 25 mg bid at home, however usually only takes this once a day. -Continue patient's losartan 25 mg bid -Monitor BP, adjust antihypertensives as needed -BP improved Thyroid Nodules: incidental finding on carotid U/S -largest thyroid nodule on carotid U/S measuring 3.7 x 3.5cm -TSH and T4 wnl -Consult endocrinology for further evaluation Hyperlipidemia: LDL 137. -discussed with patient and son, reportedly patient has tried numerous cholesterol medications including statin, however cannot tolerate due to myopathies -patient and son requested to continue treatment with fish oil only for now and will f/up as outpatient DVT prophylaxis: heparin sq Discharge Planning Plan to discharge after seen and cleared by endocrinology. 1600hrs: Patient seen by endocrinology, discussed with Dr. Isaac, recommend collecting thyroid antibody labs, then ok to discharge from endocrinology standpoint. Labs are send out and will not be resulted tonight. Dr. Isaac plans to follow up on results and recommended outpatient follow up. All questions answered with the patient and son. Discharge patient to home Condition on discharge: Improved Heart Healthy Diet as tolerated Ad Reshma activity Rx written: meclizine 25mg po q8h prn dizziness Follow-up with primary care physician and physical therapy for vestibular rehab Jennifer Rogers PA-C February 05, 2018 9:56 am
--- NOTE | 2018-02-05 16:27 | PD.CONS ---
History of Present Illness Service Endocrinology Consult Requested By Dr Rogers Reason for Consult Large thyroid nodule Primary Care Physician Unknown Diagnoses: History of Present Illness This is a 72 years old [place] Lady who came to the ED for evaluation of dizziness and who was found to have a large thyroid nodule on her imaging work up as a incidental finding. Her directed work up revealed a TSR and Free T4 which is normal. Otherwise she has no history of thyroid disease, had some 5 lbs weight gain in the last 6 months which her son who is the spanish interpreter/translator feels has more to do with her decrease in physial activity since they moved. Otherwise she also admits to dysphagia to liquids off and on but not to solids. On questioning she admits to a history of GERD. She otherwise other than the presenting symptoms and the aforementioned does not have a symptoms of thyroid dysfunction. Review of Systems Except as stated in HPI: all other systems reviewed are Neg Past Family Social History Allergies: Coded Allergies: No Known Allergies (Unverified , 02/04/18) Past Medical History HTN, GERD, Hyperlipidemia, DJD, GERD and Gall Bladder Stones Past Surgical History Non contributory Active Ordered Medications Current Medications Medications (Trade) Dose Ordered Sig/Nirav Route Start Time Stop Time Status Last Admin (Cozaar) 25 mg BID PO 02/04/18 09:00 02/05/18 08:41 (NS Flush) 2 ml UNSCH PRN IV FLUSH 02/04/18 06:00 (NS Flush) 2 ml BID IV FLUSH 02/04/18 09:00 02/05/18 08:41 (Tylenol) 650 mg Q4H PRN PO 02/04/18 06:00 (Zofran Inj) 4 mg Q6H PRN IVP 02/04/18 06:00 (Heparin Inj) 5,000 units Q12H SQ 02/04/18 06:00 02/05/18 06:34 (Narcan Inj) 0.4 mg UNSCH PRN IV PUSH 02/04/18 06:00 ([place]-Colace) 1 tab BID PO 02/04/18 09:00 02/04/18 21:01 (Milk Of Magnesia Liq) 30 ml Q12H PRN PO 02/04/18 06:00 (Senokot) 17.2 mg Q12H PRN PO 02/04/18 06:00 (Dulcolax Supp) 10 mg DAILY PRN RECTAL 02/04/18 06:00 (Lactulose Liq) 30 ml DAILY PRN PO 02/04/18 06:00 (NovoLOG SUPPLEMENTAL SCALE) 1 ACHS SQ 02/04/18 08:00 Family History CAD in her father and in her sister DM and HTN Social History Single, living with her son, No history of smoking, drinking or illicit drugs. She used to work in a kitchen. Physical Exam Vital Signs Vital Signs Date Time Temp Pulse Resp B/P (MAP) Pulse Ox O2 Delivery O2 Flow Rate FiO2 02/05/18 15:11 97.8 72 16 149/76 (100) 96 02/05/18 12:23 98.0 75 16 139/61 (87) 98 02/05/18 12:09 69 02/05/18 08:19 98.0 75 16 166/72 (103) 96 02/05/18 07:49 65 02/05/18 04:37 98.0 71 16 137/64 (88) 93 02/05/18 00:27 98.2 75 16 128/60 (82) 95 02/04/18 21:19 98.3 76 16 131/67 (88) 95 02/04/18 16:49 98.7 67 18 126/60 (82) 97 Physical Exam GENERAL: This is a well-nourished, well-developed patient, in no apparent distress with central obesity. SKIN: No rashes, ecchymoses or lesions. Cool and dry. HEAD: Atraumatic. Normocephalic. EYES: Pupils equal round and reactive. Extraocular motions intact. No scleral icterus. No injection or drainage. ENT: Nose without bleeding, purulent drainage NECK: Trachea midline. No JVD or lymphadenopathy. Supple, nontender, no meningeal signs. Normal Carotid pulses without bruits. Thyroid reveals a 3.5 cm smooth ovoid nodule in the lower left lobe on physical examination. Right side is more difficult to evaluate. CARDIOVASCULAR: Regular rate and rhythm without murmurs, gallops, or rubs. RESPIRATORY: Clear to auscultation. Breath sounds equal bilaterally. No wheezes , rales, or rhonchi. MUSCULOSKELETAL: Extremities without clubbing, cyanosis, or edema. No joint tenderness, effusion, or edema noted. No calf tenderness.Has [place]ber[place] Nodes on several of her fingers. NEUROLOGICAL: Awake and alert. Cranial nerves II through XII intact. Motor and sensory grossly within normal limits. Laboratory Laboratory Tests Test 02/05/18 06:00 White Blood Count 6.7 Red Blood Count 4.45 Hemoglobin 13.1 Hematocrit 38.5 Mean Corpuscular Volume 86.5 Mean Corpuscular Hemoglobin 29.3 Mean Corpuscular Hemoglobin Concent 33.9 Red Cell Distribution Width 12.9 Platelet Count 287 Mean Platelet Volume 7.9 Neutrophils (%) (Auto) 60.0 Lymphocytes (%) (Auto) 28.5 Monocytes (%) (Auto) 7.0 Eosinophils (%) (Auto) 4.0 Basophils (%) (Auto) 0.5 Neutrophils # (Auto) 4.0 Lymphocytes # (Auto) 1.9 Monocytes # (Auto) 0.5 Eosinophils # (Auto) 0.3 Basophils # (Auto) 0.0 CBC Comment DIFF FINAL Differential Comment Blood Urea Nitrogen 17 Creatinine 0.62 Random Glucose 82 Calcium Level 9.0 Sodium Level 142 Potassium Level 4.1 Chloride Level 108 Carbon Dioxide Level 27.0 Anion Gap 7 Estimat Glomerular Filtration Rate 95 Triglycerides Level 125 Cholesterol Level 204 LDL Cholesterol 137 HDL Cholesterol 41.7 Cholesterol/HDL Ratio 4.89 Result Diagram: 02/05/18 0600 02/05/18 0600 Imaging Last [address] 02/04/18 0412 Signed Impressions: Service Date/Time: Sunday, February 04, 2018 04:51 - CONCLUSION: 1. Chronic changes in the deep white matter tracts and external capsules. 2. Nothing acute. Rodney Hall MD Head Magnetic Resonance Angiography 02/04/18 0000 Signed Impressions: Service Date/Time: Sunday, February 04, 2018 12:13 - CONCLUSION: No acute disease. Arie Avendano MD Carotid Artery Ultrasound 02/04/18 0000 Signed Impressions: Service Date/Time: Sunday, February 04, 2018 10:53 - CONCLUSION: 1. Mild atherosclerotic plaquing at the carotid bifurcations. 2. No hemodynamically significant carotid artery stenosis identified. 3. Incidental note made of bilateral thyroid nodules. There are only partially visualized. The largest is on the left measuring 3.7 x 3.5 cm. Mateus Luciano MD Brain MRI 02/04/18 0000 Signed Impressions: Service Date/Time: Sunday, February 04, 2018 12:13 - CONCLUSION: 1. Bilateral cortical atrophy and diffuse chronic white matter changes. 2. Otherwise, unremarkable exam for patient's age. Arie Avendano MD Laboratory Tests 02/05/18 06:00 Calcium Level 9.0 Laboratory Tests Test 02/05/18 06:00 Blood Urea Nitrogen 17 MG/DL Creatinine 0.62 MG/DL Random Glucose 82 MG/DL Calcium Level 9.0 MG/DL Sodium Level 142 MEQ/L Potassium Level 4.1 MEQ/L Chloride Level 108 MEQ/L Carbon Dioxide Level 27.0 MEQ/L Anion Gap 7 MEQ/L Estimat Glomerular Filtration Rate 95 ML/MIN Triglycerides Level 125 MG/DL Cholesterol Level 204 MG/DL LDL Cholesterol 137 MG/DL HDL Cholesterol 41.7 MG/DL Cholesterol/HDL Ratio 4.89 RATIO Assessment and Plan Problem List: (1) GERD (gastroesophageal reflux disease) ICD Codes: K21.9 - Gastro-esophageal reflux disease without esophagitis (2) Dysphagia ICD Codes: R13.10 - Dysphagia, unspecified (3) Thyroid nodule ICD Codes: E04.1 - Nontoxic single thyroid nodule (4) Vertigo ICD Codes: R42 - Dizziness and giddiness Status: Acute Assessment and Plan Non-toxic multinodular goiter with dominant large left lower lobe nodule Dysphagia Vertigo I have discussed the condition with the patient via her son. At this point I have asked to have a Anti-TPO antibody titer added to her labs. I have discussed her DDX as well as the complications of thyroid nodules. I will see her back in the office in 2 - 3 weeks and will complete her work up. I have taken the liberty to write the orders. Otherwise at this point I do not feel her occasional dysphagia is related etiologically to her thyroid nodule rather this seems to be related more to her GERD and will recommend treatment for this by her health care team. Thank you for allowing me to participate in the medical management of this patient. Ezekiel Isaac MD February 05, 2018 16:27
[2018-02-07 23:53] LABS: THYROID PEROX AB (MICROSOMAL) 85 IU/mL (<9)
[2018-02-08 19:53] LABS: THYROGLOB ABS LESS THAN 1 IU/mL (< OR = 1)
== END 2018-02-05 17:58 | disposition home or self-care (01) ==
LOC: NEPE 03:48 → NEDA 05:56 → NEPGCP 06:39
PROVIDERS: ADMIT Hospitalist; ATTEND Hospitalist
DX: H81.10 Benign paroxysmal vertigo, unspecified ear (principal); R27.0 Ataxia, unspecified; R11.2 Nausea with vomiting, unspecified; K21.9 Gastro-esophageal reflux disease without esophagitis; R13.10 Dysphagia, unspecified; I10 Essential (primary) hypertension; E78.5 Hyperlipidemia, unspecified; E04.2 Nontoxic multinodular goiter; G31.9 Degenerative disease of nervous system, unspecified; J30.2 Other seasonal allergic rhinitis; M19.90 Unspecified osteoarthritis, unspecified site; Z79.899 Other long term (current) drug therapy
CPT/HCPCS: 70450; 70544; 70551; 80048; 80053; 80061; 82550; 82552; 82948; 83036; 83690; 83735; 84439; 84443; 84484; 85025; 85610; 85730; 86376; 86800; 93005; 93880; 96361; 96372; 96374; 97162; 99285; G0378; G8987; G8988; J1644; J2405; J7030